=== PATIENT | female | born 1995 | race African-American/Black ===

== ENCOUNTER 2018-05-29 11:32 | Emergency (ER) | payer OTHER ==
[2018-05-29 12:11] LABS: Absolute Lymphocytes (CBC) 2.6 K/uL (0.7-4.9); Absolute Monocytes 0.5 K/uL (0.1-1.3); Absolute Neutrophil 2.6 K/uL (1.8-8.0); Basophils % 0.3 % (0-1.3); Eosinophils % 1.7 % (0-4.4); Hematocrit 38.4 % (36.0-45.0); Lymphocytes % 45.1 % (15.3-44.8); MPV 7.5 fL (7.6-11.3); Monocytes % 8.1 % (3.3-12.3); RBC Red Blood Cell Count 4.83 M/uL (3.86-4.86)
[2018-05-29 12:28] LABS: ALT/SGPT 32 U/L (12-78); AST/SGOT 21 U/L (15-37); Albumin 3.6 g/dL (3.4-5.0); Alkaline Phosphatase 44 U/L (45-117); BUN Blood Urea Nitrogen 12 mg/dL (7-18); Bicarbonate 25 mmol/L (21-32); Bilirubin Direct 0.1 mg/dL (0-0.2); Bilirubin Total 0.3 mg/dL (0.2-1.0); Glucose Level 84 mg/dL (74-106); Magnesium 2.1 mg/dL (1.8-2.4); Potassium 3.4 mmol/L (3.5-5.1); Protein, Total 7.8 g/dL (6.4-8.2); Sodium Level 137 mmol/L (136-145); Troponin (Emerg Dept Use Only) < 0.02 ng/mL (0.0-0.045)
--- NOTE | 2018-05-29 13:17 | RAD REPORT ---
EXAM DESCRIPTION: RAD - Chest Single View - 05/29/2018 1:11 pm CLINICAL HISTORY: syncopal episode Chest pain. COMPARISON: No comparisons FINDINGS: Portable technique limits examination quality. The lungs are grossly clear. The heart is normal in size. No displaced fractures. IMPRESSION: No acute intrathoracic process suspected.
--- NOTE | 2018-05-29 13:34 | ER ---
Nurse's Notes [facility] Name: Branden Perez Age: 23 yrs Sex: Female : 1995 Arrival Date: 05/29/2018 Time: 11:35 Bed 7 Private MD: Diagnosis: Syncope and collapse Presentation: 05/29 11:29 Presenting complaint: EMS states: pt was taking a tour at [place] and had a syncopal sv episode from standing and landed on bilateral knees, pt was then able to walk over to a chair to sit down with assistance. BP 126/90, HR-72, RR-16 100% RA, BS-77. Transition of care: patient was not received from another setting of care. Onset of symptoms was May 29, 2018. Risk Assessment: Do you want to hurt yourself or someone else? Patient reports no desire to harm self or others. Initial Sepsis Screen: Does the patient meet any 2 criteria? No. Patient's initial sepsis screen is negative. Does the patient have a suspected source of infection? No. Patient's initial sepsis screen is negative. Care prior to arrival: None. 11:29 Method Of Arrival: EMS: [facility] sv 11:29 Acuity: ERINN 3 sv Triage Assessment: 11:30 General: Appears in no apparent distress. comfortable, slender, well developed, sv Behavior is calm, cooperative, appropriate for age. Pain: Complains of pain in left and right knee Pain currently is 1 out of 10 on a pain scale. Neuro: Level of Consciousness is awake, alert, obeys commands, Oriented to person, place, time, situation, Moves all extremities. Full function Gait is steady, Reports a syncopal episode. Respiratory: Respiratory effort is even, unlabored, Respiratory pattern is regular, symmetrical. Derm: Skin is pink, warm \T\ dry. Historical: - Allergies: 11:48 No Known Allergies; sv - Home Meds: 11:48 control [Active]; sv - PMHx: 11:48 None; sv - PSHx: 11:48 None; sv - Immunization history:: Adult Immunizations up to date. - Social history:: Smoking status: Patient/guardian denies using tobacco. - Ebola Screening: : No symptoms or risks identified at this time. Screenin:50 Abuse screen: Denies threats or abuse. Denies injuries from another. Nutritional sv screening: No deficits noted. Tuberculosis screening: No symptoms or risk factors identified. Fall Risk None identified. Assessment: 12:27 Reassessment: Patient appears in no apparent distress at this time. No changes from sv previously documented assessment. Patient and/or family updated on plan of care and expected duration. Pain level reassessed. Patient is alert, oriented x 3, equal unlabored respirations, skin warm/dry/pink. 12:27 Cardiovascular: Rhythm is sinus rhythm. sv 12:53 Reassessment: pt encouraged to please provide a clean catch urine specimen at this sg time, pt requesting more water prior to providing a urine specimen, will continue to monitor. 13:54 Reassessment: Patient appears in no apparent distress at this time. Patient and/or sv family updated on plan of care and expected duration. Pain level reassessed. Patient is alert, oriented x 3, equal unlabored respirations, skin warm/dry/pink. Vital Signs: 11:29 BP 134 / 93; Pulse 77; Resp 18; Temp 98.3; Pulse Ox 100% ; Weight 68.04 kg; Height 5 sv ft. 10 in. (177.80 cm); Pain 1/10; 12:27 BP 124 / 83; Pulse 75; Resp 16; Pulse Ox 100% on R/A; sv 13:07 BP 119 / 83; Pulse 71; Resp 16; Pulse Ox 99% ; sv 13:39 BP 117 / 77 Supine; Pulse 88; jb1 13:39 BP 119 / 84 Sitting; Pulse 77; jb1 13:39 BP 122 / 96 Standing; Pulse 85; jb1 11:29 Body Mass Index 21.52 (68.04 kg, 177.80 cm) sv ED Course: 11:30 Arm band placed on. sv 11:35 Patient arrived in ED. sv 11:35 Nain Allison NP is PHCP. pm1 11:35 Wade Cordova MD is Attending Physician. pm1 11:35 Zina Renee, RAFAL is Primary Nurse. sv 11:35 Patient has correct armband on for positive identification. Placed in gown. Bed in low sv position. Call light in reach. gambling monitor on. Pulse ox on. NIBP on. Door closed. Head of bed elevated. 11:43 EKG done, by windows migration technician. reviewed by Wade Cordova MD. tc 11:48 Triage completed. sv 11:54 Initial lab(s) drawn, by me, sent to lab. Inserted saline lock: 22 gauge in right jb1 antecubital area, using aseptic technique. Blood collected. 13:01 X-ray(s) taken. sv 13:09 X-ray completed. Portable x-ray completed in exam room. Patient tolerated procedure mh1 well. 13:12 XRAY Chest (1 view) In Process Unspecified. EDMS 13:54 No provider procedures requiring assistance completed. IV discontinued, intact, sv bleeding controlled, No redness/swelling at site. Pressure dressing applied. Administered Medications: No medications were administered Point of Care Testing: Blood Glucose: 11:52 Blood Glucose: 95 mg/dL; sv Ranges: Outcome: 13:33 Discharge ordered by . pm1 13:54 Discharged to home ambulatory. sv 13:54 Condition: stable 13:54 Discharge instructions given to patient, Instructed on discharge instructions, follow up and referral plans. Demonstrated understanding of instructions, follow-up care. 13:55 Patient left the ED. sv Signatures: Dispatcher [employer] EDMS Abdullahi Bagn 1 Zina Renee, RN RN Moises Shepherd, RAFAL RN Milly Basurto 1 Izabella Roberts, green end worker EKG Nain Alvarez, STACIE TILE LAYER HELPER pm1
--- NOTE | 2018-05-29 13:34 | EDPHYS ---
Physician Documentation [facility] Name: Branden Perez Age: 23 yrs Sex: Female : 1995 Arrival Date: 05/29/2018 Time: 11:35 Bed 7 Private MD: ED Physician Wade Cordova HPI: 05/29 12:00 This 23 yrs old Black Female presents to ER via EMS with complaints of Syncope. pm1 12:00 The patient has experienced syncope, collapsed. Onset: The symptoms/episode pm1 began/occurred just prior to arrival. Duration: This was a single episode. Context: occurred Venmo, occurred while the patient was standing, Just prior to the episode the patient experienced dizziness. Associated injury: The patient did not suffer any apparent associated injury. Associated signs and symptoms: Pertinent negatives: abdominal pain, chest pain, confusion, diaphoresis, diarrhea, headache, nausea, numbness, shortness of breath, tingling, vomiting. Current symptoms: Currently, the patient is not experiencing any symptoms. The patient has not experienced similar symptoms in the past. Historical: - Allergies: 11:48 No Known Allergies; sv - Home Meds: 11:48 control [Active]; sv - PMHx: 11:48 None; sv - PSHx: 11:48 None; sv - Immunization history:: Adult Immunizations up to date. - Social history:: Smoking status: Patient/guardian denies using tobacco. - Ebola Screening: : No symptoms or risks identified at this time. ROS: 12:00 Constitutional: Negative for fever, chills, and weight loss, Eyes: Negative for injury, pm1 pain, redness, and discharge, ENT: Negative for injury, pain, and discharge, Neck: Negative for injury, pain, and swelling, Cardiovascular: Negative for chest pain, palpitations, and edema, Respiratory: Negative for shortness of breath, cough, wheezing, and pleuritic chest pain, Abdomen/GI: Negative for abdominal pain, nausea, vomiting, diarrhea, and constipation, Back: Negative for injury and pain, : Negative for injury, bleeding, discharge, and swelling, MS/Extremity: Negative for injury and deformity, Skin: Negative for injury, rash, and discoloration. 12:00 Neuro: Positive for syncope, Negative for gait disturbance, seizure activity, weakness. Exam: 12:00 Abdomen/GI: Exam negative for Inspection: abdomen appears normal, Bowel sounds: normal, pm1 Palpation: abdomen is soft and non-tender, in all quadrants. 12:00 Constitutional: This is a well developed, well nourished patient who is awake, alert, and in no acute distress. Head/Face: Normocephalic, atraumatic. Eyes: Pupils equal round and reactive to light, extra-ocular motions intact. Lids and lashes normal. Conjunctiva and sclera are non-icteric and not injected. Cornea within normal limits. Periorbital areas with no swelling, redness, or edema. ENT: Nares patent. No nasal discharge, no septal abnormalities noted. Tympanic membranes are normal and external auditory canals are clear. Oropharynx with no redness, swelling, or masses, exudates, or evidence of obstruction, uvula midline. Mucous membranes moist. Neck: Trachea midline, no thyromegaly or masses palpated, and no cervical lymphadenopathy. Supple, full range of motion without nuchal rigidity, or vertebral point tenderness. No Meningismus. Chest/axilla: Normal chest wall appearance and motion. Nontender with no deformity. No lesions are appreciated. Cardiovascular: Regular rate and rhythm with a normal S1 and S2. No gallops, murmurs, or rubs. Normal PMI, no JVD. No pulse deficits. Respiratory: Lungs have equal breath sounds bilaterally, clear to auscultation and percussion. No rales, rhonchi or wheezes noted. No increased work of breathing, no retractions or nasal flaring. Back: No spinal tenderness. No costovertebral tenderness. Full range of motion. Skin: Warm, dry with normal turgor. Normal color with no rashes, no lesions, and no evidence of cellulitis. MS/ Extremity: Pulses equal, no cyanosis. Neurovascular intact. Full, normal range of motion. 12:00 Neuro: Orientation: is normal, Mentation: is normal, Cerebellar function: normal finger to nose testing, Motor: moves all fours, strength is normal, strength is 5/5 in all extremities, Gait: is steady, at a normal pace, without difficulty. Vital Signs: 11:29 BP 134 / 93; Pulse 77; Resp 18; Temp 98.3; Pulse Ox 100% ; Weight 68.04 kg; Height 5 sv ft. 10 in. (177.80 cm); Pain 05/23; 12:27 BP 124 / 83; Pulse 75; Resp 16; Pulse Ox 100% on R/A; sv 13:07 BP 119 / 83; Pulse 71; Resp 16; Pulse Ox 99% ; sv 13:39 BP 117 / 77 Supine; Pulse 88; jb1 13:39 BP 119 / 84 Sitting; Pulse 77; jb1 13:39 BP 122 / 96 Standing; Pulse 85; jb1 11:29 Body Mass Index 21.52 (68.04 kg, 177.80 cm) sv MDM: 11:35 Patient medically screened. pm1 13:13 Data reviewed: vital signs. Data interpreted: Pulse oximetry: on room air is 99 %. pm1 Interpretation: normal. 13:27 Counseling: I had a detailed discussion with the patient and/or guardian regarding: the pm1 historical points, exam findings, and any diagnostic results supporting the discharge/admit diagnosis, lab results, radiology results, the need for outpatient follow up, to return to the emergency department if symptoms worsen or persist or if there are any questions or concerns that arise at home. 13:27 ED course: [place] Syncope Rule is Low-risk group. pm1 05/29 11:43 Order name: Basic Metabolic Panel; Complete Time: 12:30 pm1 05/29 11:43 Order name: CBC with Diff; Complete Time: 12:24 pm1 05/29 11:43 Order name: LFT's; Complete Time: 12:30 pm1 05/29 11:43 Order name: Magnesium; Complete Time: 12:30 pm1 05/29 11:43 Order name: Troponin (emerg Dept Use Only); Complete Time: 12:30 pm1 05/29 13:33 Order name: Glucose, Ancillary Testing; Complete Time: 13:37 EDMS 05/29 11:43 Order name: XRAY Chest (1 view); Complete Time: 13:27 pm1 05/29 11:43 Order name: EKG; Complete Time: 11:44 pm1 05/29 11:43 Order name: Cardiac monitoring; Complete Time: 11:56 pm1 05/29 11:43 Order name: EKG - Nurse/Tech; Complete Time: 11:56 pm1 05/29 11:43 Order name: IV Saline Lock; Complete Time: 11:57 pm1 01/16 11:43 Order name: Labs collected and sent; Complete Time: 11:57 pm1 05/29 11:43 Order name: O2 Per Protocol; Complete Time: 11:57 pm1 05/29 11:43 Order name: O2 Sat Monitoring; Complete Time: 11:57 pm1 05/29 13:33 Order name: Orthostatics; Complete Time: 13:41 pm1 Administered Medications: No medications were administered Point of Care Testing: Blood Glucose: 11:52 Blood Glucose: 95 mg/dL; sv Ranges: Critical Glucose Levels:Adult <50 mg/dl or >400 mg/dl <40 mg/dl or >180 mg/dl Disposition: 17:51 Co-signature as Attending Physician, Wade Cordova MD. rn Disposition: 05/29/18 13:33 Discharged to Home. Impression: Syncope and collapse. - Condition is Stable. - Discharge Instructions: Syncope. - Medication Reconciliation Form, Thank You Letter form. - Follow up: Emergency Department; When: As needed; Reason: Worsening of condition. Follow up: Private Physician; When: 2 - 3 days; Reason: Recheck today's complaints, Continuance of care, Re-evaluation by your physician. - Problem is new. - Symptoms have improved. Signatures: Dispatcher [employer] Zina Gao RN RN sv Nieto, Roman, MD MD rn Marinas, Patrick, STACIE CONSTITUTIONAL LAW PROFESSOR pm1 Corrections: (The following items were deleted from the chart) 13:55 11:43 Urine Dipstick-Ancillary ordered. pm1 sv 13:55 11:43 Urine Test ordered. pm1 sv 13:55 13:33 05/29/2018 13:33 Discharged to Home. Impression: Syncope and collapse. Condition sv is Stable. Forms are Medication Reconciliation Form, Thank You Letter, Antibiotic Education, Prescription Opioid Use. Follow up: Emergency Department; When: As needed; Reason: Worsening of condition. Follow up: Private Physician; When: 2 - 3 days; Reason: Recheck today's complaints, Continuance of care, Re-evaluation by your physician. Problem is new. Symptoms have improved. pm1
--- NOTE | 2018-05-29 14:00 | EKG ---
Test Date: 2018-05-29 Test Time: 11:37:08 [employer]ada Technician: JOAQUIN MEASUREMENT RESULTS: Intervals: Rate: 76 OR: 160 QRSD: 92 QT: 374 QTc: 420 [place]: P: 42 OR: 160 QRS: 8 T: 26 INTERPRETIVE STATEMENTS: Normal sinus rhythm with sinus arrhythmia Normal ECG No previous ECG available for comparison Electronically Signed On 05-29-18 14:00:17 NATURAL RESOURCE OFFICER by Juan Francisco Madsen
== END 2018-05-29 13:55 | disposition home or self-care (01) ==
LOC: ER 11:32
DX: R55 Syncope and collapse (principal)
CPT/HCPCS: 36415; 71045; 80048; 80076; 82962; 83735; 84484; 85025; 93005; 99285